=== PATIENT | male | born 1985 | race Caucasian/White ===

== ENCOUNTER 2018-09-08 19:20 | Emergency (ER) | payer SELFPAY ==
[~2018-09-08] VITALS: Ht 180.3 cm; Wt 79.4 kg
[2018-09-08] MEDS ORDERED: Meclizine 25mg tab ORAL ONE (20:00)
--- NOTE | 2018-09-08 20:00 | Emergency Room Report ---
History of Present Illness General Chief Complaint: Dizziness Source: Patient (Mahogany Garcia) Present Illness HPI 33 YO male presents to the ED c/o dizziness with turning his head to the side too quickly. reports nausea and two episodes of vomiting. denies blood in the vomit, denies abdominal pain or tenderness. pt reports GI sickness with 10 days of diarrhea 2 weeks ago. pt. denies recent head trauma. Denies ear pain, tinnitus, blurry vision, CARBONE or sudden on set CARBONE. pt. reports some photophobia. denies neck pain or stiffness. denies CP or palpitations. reports hx of HTN several years ago requiring temporary BP medication. PT. denies LOC or AMS. (Mahogany Garcia) Allergies: Coded Allergies: PENICILLINS (Verified Allergy, Unknown, 09/08/18) Patient History Past Medical History: see triage record Past Surgical History: none Pertinent Family History: none Reviewed Nursing Documentation: PMH: Agreed; PSxH: Agreed (Mahogany Garcia) Nursing Documentation-PMH Past Medical History: No History, Except For Hx Cardiac Problems: No - vertigo (Mahogany Garcia) Review of Systems All Other Systems: negative except mentioned in HPI (Mahogany Garcia) Physical Exam Vital Signs Date Time Temp Pulse Resp B/P (MAP) Pulse Ox O2 Delivery O2 Flow Rate FiO2 09/08/18 19:22 98.2 55 18 115/73 100 Room Air Sp02 EP Interpretation: reviewed, normal General Appearance: no apparent distress, alert, GCS 15, non-toxic Head: normocephalic, atraumatic Eyes: bilateral eye normal inspection, bilateral eye PERRL, bilateral eye EOMI , bilateral eye other - no photophobia on exam ENT: hearing grossly normal, normal voice Neck: full range of motion, no meningismus, no bony tend Respiratory: lungs clear, normal breath sounds, speaking full sentences Cardiovascular #1: regular rate, rhythm Gastrointestinal: normal bowel sounds, non tender, soft Musculoskeletal: back normal, gait/station normal, normal range of motion, non- tender Neurologic: alert, oriented x3, responsive, motor strength/tone normal, sensory intact, normal gait, speech normal, no pronator, other - negative linda- perez pike. no facial droop, no unilateral weakness. , grossly normal Psychiatric: judgement/insight normal Skin: normal color, no rash, warm/dry, well hydrated (Mahogany Garcia) Medical Decision Making PA Attestation Dr. Calhoun is my supervising Physician whom patient management has been discussed with. (Mahogany Garcia) Diagnostic Impression: Primary Impression: Dizziness Additional Impression: Vertigo ER Course 33 YO male presents to the ED c/o dizziness with turning his head to the side too quickly. reports nausea and two episodes of vomiting. denies blood in the vomit, denies abdominal pain or tenderness. pt reports GI sickness with 10 days of diarrhea 2 weeks ago. pt. denies recent head trauma. Denies ear pain, tinnitus, blurry vision, CARBONE or sudden on set CARBONE. pt. reports some photophobia. denies neck pain or stiffness. denies CP or palpitations. reports hx of HTN several years ago requiring temporary BP medication. PT. denies LOC or AMS. Ddx considered but are not limited to Mnire's, BPPV, labrinitis, cerebellar stroke, hypovolemia, cardiac cause. Vital signs: are WNL, pt. is afebrile H&PE are most consistent with : Peripheral vertigo. Symptoms only illicited with turning head quickly to the side. pt. had negative Linda-Hallpike. ORDERS: - EK BPM NSR with some J-point elevation -OrthoStatic VS: Negative ED INTERVENTIONS: -Meclizine: pt. was unable to keep down -IV Ativan 1 mg - IV Zofran 4mg Pt. is signed out to Dr. Colbert pending intervention re-evaluation and final disposition. (Mahogany Garcia) ER Course Patient signout to me. He presents with dizziness with room spinning when he look at secondary infection. He had this problem a couple years ago. No focal deficit to indicate TIA or CVA. No vertical nystagmus. Better after IV fluid and Ativan. Because of lack of focality and red flags, I see no need for CT scan. We'll discharge home. (Gen Colbert MD) EKG Diagnostic Results EP Interpretation: Dr. Calhoun Rate: normal - 62 bpm Rhythm: NSR ST Segments: no acute changes Other Impression J-point elevation ASA given to the pt in ED: No PA Scribe Text This Interpretation was scribed by SASCHA Garcia. (Maohgany Garcia) Last Vital Signs Date Time Temp Pulse Resp B/P (MAP) Pulse Ox O2 Delivery O2 Flow Rate FiO2 09/08/18 19:22 98.2 55 18 115/73 100 Room Air (Mahogany Garcia) Status: improved (Gen Colbert MD) Disposition: HOME, SELF-CARE Condition: Stable Signed Out To: Dr. Colbert (Mahogany Garcia) Scripts Meclizine Hcl* (MECLIZINE*) 25 Mg Tablet 50 MG ORAL THREE TIMES A DAY, #30 TAB Prov: Gen Colbert MD 09/08/18 Referrals: NOT CHOSEN IPA/,REFERRING (PCP) Additional Instructions: Follow-up with your doctor in 2-3 days and not better. Return if symptom worsen. Mahogany Garcia Sep 08, 2018 20:00 Gen Colbert MD Sep 08, 2018 21:55
[2018-09-08 20:09] VITALS: BP 111/65
[2018-09-08 20:13] VITALS: BP 111/65
[2018-09-08] MEDS ORDERED: LORazepam Inj 2mg/ml 1ml IV ONE (21:00)
[2018-09-08] MEDS ORDERED: MECLIZINE HCL25 MG ORAL (21:54)
[2018-09-08 23:36] VITALS: BP 115/75
== END 2018-09-08 22:18 | disposition home or self-care (01) ==
LOC: EMR 19:53
DX: R42 Dizziness and giddiness (principal); Z88.0 Allergy status to penicillin
CPT/HCPCS: 93005; 96361; 96374; 96375; 99284; J2405